=== PATIENT | male | born 1975 | race Caucasian/White ===

== ENCOUNTER 2022-05-31 08:20 | Emergency (ER) | payer SELFPAY ==
[2022-05-31 08:27] VITALS: BP 183/117; PULSE 107; RESP 19; TEMP 36.8; O2SAT 98; BMI 25.1
--- NOTE | 2022-05-31 08:37 | ECG_ITS ---
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 Measurements Intervals [place] Rate: 113 P: 0 [place]: 0 QRS: 59 QRSD: 80 T: 60 QT: 309 QTc: 424 Interpretive Statements SINUS TACHYCARDIA LEFT VENTRICULAR HYPERTROPHY AND ST-T CHANGE [VOLTAGE CRITERIA PLUS ST/T ABNORMALITY] No previous ECG available for comparison Electronically Signed On 05-31-2022 16:43:57 CDT by Luther Chou M.D. [id number]
[2022-05-31 08:58] LABS: Basophils # 0.1 10^3/uL (0.0-0.1); Basophils % 0.6 %; Eosinophils # 0.1 10^3/uL (0.0-0.8); Eosinophils % 0.7 %; Hematocrit 48.5 % (42.0-52.0); Hemoglobin 15.9 g/dL (11.7-16.6); Lymphocytes # 1.8 10^3/uL (0.8-4.8); Mean Corpuscular HGB Conc 32.8 g/dL (30.0-36.0); Mean Corpuscular Hemoglobin 28.5 pg (28.0-34.0); Mean Corpuscular Volume 86.9 fl (80-94); Mean Platelet Volume 10.2 fL (7.4-10.4); Monocytes # 0.9 10^3/uL (0.2-0.9); Monocytes % 5.8 %; Neutrophils # 12.15 10^3/uL (1.8-7.7); Neutrophils % 80.4 %; Nucleated Red Blood Cells % 0 %; Platelet Count 260 10^3/cmm (130-400); Red Blood Count 5.58 10^6/uL (4.1-5.3); Red Cell Distribution Width 12.7 % (12.1-15.1); White Blood Count 15.1 10^3/uL (4.0-10.0)
[2022-05-31] MEDS: ondansetron 2 mg/ML SDV 2 mL 4 MG IVP (09:03)
[2022-05-31] MEDS: sodium chloride 0.9% 1,000 ML 999 ML IV (09:03)
[2022-05-31 09:19] LABS: Alanine Aminotransferase 15 U/L (0-41); Albumin Level 4.4 g/dL (3.5-5.2); Alkaline Phosphatase 95 U/L (40-130); Anion Gap 12.7 (5-19); Aspartate Amino Transferase 16 U/L (0-40); Blood Urea Nitrogen 9 mg/dL (6-20); Calcium 9.4 mg/dL (8.5-10.5); Carbon Dioxide 29 mmol/L (22-29); Chloride 105 mmol/L (98-107); Globulin 3.2 g/dL (1.3-4.6); Glomerular Filtration Rate 91.7 mL/min (90-130); Glucose 123 mg/dL (65-115); Osmolality Calculated 296 mOsm/kg (285-295); Potassium 3.7 mmol/L (3.5-5.1); Sodium 143 mmol/L (136-145); Total Bilirubin 0.4 mg/dL (0.15-1.2); Total Protein 7.6 g/dL (6.6-8.7)
[2022-05-31 09:21] LABS: Alcohol Level < 10 mg/dL (0-10)
--- NOTE | 2022-05-31 09:36 | ED_ITS ---
HPI - Nausea/Vomiting/Diarrhea General: Chief complaint: Nausea/Vomiting/Diarrhea Stated complaint: possible OD of pain meds Time Seen by Provider: 05/31/22 08:23 Source: patient Mode of arrival: ambulatory History of Present Illness: 46-year-old male presents emergency room for planing of neck and back pain. Patient admits to chronic abuse of narcotics at home he takes illicit Keenan obtained medications he states he last took fentanyl about 4 to 5 hours ago when he is still having pain in his back and neck. He is unsure of the dose that he took he is awake alert and oriented shows no signs of sedation. He is tachycardic and hypertensive him. Clinically he appears to be under the influence of a stimulant. He is restless and moving constantly does not appear to affect his neck or back. After initially evaluating the patient he states now his legs hurt. Not had any swelling his legs no shortness of breath no history of blood clots. Patient had a previous neck and back injury nearly 10 years ago and has had chronic back pain since has not been seeing pain clinic or primary care provider. No recent illness shortness of breath abdominal pain dysuria urgency or frequency or diarrhea. He had 1 episode of vomiting this morning. MD elicited complaint: nausea Onset (ago): hour(s) Description of vomiting: watery Associated nausea: Yes Associated abdominal pain: No Location of pain: Other (Back neck lower extremities) Pain consistency: constant Severity: moderate Quality: aching Exacerbating factors: none Relieving factors: none Associated symtoms: Reports nausea; Denies altered mental status, anxiety, bloating, change in vision, chest pain, cough, diaphoresis, decreased urine output, dizziness, dysuria, epistaxis, fatigue, fecal incontinence, fevers/chills, headache(s), anorexia, malaise, myalgias, numbness, palpitations, rash, short of breath, syncope, tenesmus, tin nitus or weakness Review of Systems Const: Denies: fever(s), chills, fatigue, malaise or diaphoresis Eyes: Denies: change in vision ENMT: Denies: tinnitus or epistaxis Card: Denies: chest pain, palpitations or syncope Resp: Denies: dyspnea, productive cough or non-productive cough GI: Reports: nausea; Denies: bloating or fecal incontinence : Denies: dysuria Skin/Breast: Denies: rash or pruritus Neuro: Denies: headache(s) or dizziness Psych: Denies: anxiety PFSH ED PFSH: Medical History (Updated 05/31/22 @ 09:39 by Tra Sanchez DO) Chronic back pain Chronic neck pain Physical Exam Const: EXAM LIMITATIONS: no altered mental status GENERAL APPEARANCE: cooperative and comfortable ORIENTATION/CONSCIOUSNESS: Yes awake, Yes oriented to person, Yes oriented to place and Yes oriented to time HENMT: COMMON NORMALS: normocephalic, atraumatic and hearing grossly normal bilaterally HEAD & SCALP: normocephalic and atraumatic Resp: COMMON NORMALS: normal respiratory effort, No retractions, No use of accessory muscles and clear to auscultation bilaterally AUSCULTATION: clear to auscultation bilaterally Cardio: COMMON NORMALS: regular rate, regular rhythm and No murmurs present (Cardio) RATE: regular rate RHYTHM: regular rhythm GI: COMMON NORMALS: Soft to palpation and No hepatosplenomegaly present AUSCULTATION: Yes normoactive bowel sounds PALPATION: Yes Soft to palpation, No Tenderness to palpation present (GI), No Guarding due to palpation present (GI) and Yes No hepatosplenomegaly present Extremity: COMMON NORMALS: normal to inspection, capillary refill normal, no clubbing, cyanosis or edema, no calf tenderness and no pedal edema Neuro: SENSORIUM/ORIENTATION: Yes oriented to person, Yes oriented to place and Yes oriented to time Skin: COMMON NORMALS: no rashes or lesions noted GENERAL SKIN EXAM: no rashes or lesions noted Course Vital Signs: Vital signs: Vital Signs Temperature 98.3 F 05/31/22 08:27 Pulse Rate 107 H 05/31/22 08:27 Respiratory Rate 19 H 05/31/22 08:27 Blood Pressure 183/117 05/31/22 08:27 Pulse Oximetry 98 05/31/22 08:27 Oxygen Delivery Me thod 05/31/22 08:27 MDM - Nausea/Vomiting/Diarrhea Medical Decision Making Labs reviewed with the patient. He has not yet provided a urine specimen. Discharge him home on Lyrica and diclofenac for his neck and back pain which is chronic. Clonidine 0.1 twice daily for 3 days 0.1 daily for 3 days ondansetron as well that he can use for symptoms he encounters after stopping the narcotics. Finally also add amlodipine 2.5 p.o. daily. He should establish with a primary care doctor for referral to pain clinic as well as monitoring of his blood pressure should have his blood pressure rechecked within the week. Also give patient referral to local services for substance abuse. Medical Records I reviewed the patient's medical records. Lab Data I reviewed the patient's lab results. 05/31/22 08:32 05/31/22 08:32 Laboratory Results WBC 15.1 10^3/uL (4.0-10.0) H 05/31/22 08:32 RBC 5.58 10^6/uL (4.1-5.3) H 05/31/22 08:32 Hgb 15.9 g/dL (11.7-16.6) 05/31/22 08:32 Hct 48.5 % (42.0-52.0) 05/31/22 08:32 MCV 86.9 fl (80-94) 05/31/22 08:32 MCH 28.5 pg (28.0-34.0) 05/31/22 08:32 MCHC 32.8 g/dL (30.0-36.0) 05/31/22 08:32 RDW 12.7 % (12.1-15.1) 05/31/22 08:32 Plt Count 260 10^3/cmm (130-400) 05/31/22 08:32 MPV 10.2 fL (7.4-10.4) 05/31/22 08:32 Neut % (Auto) 80.4 % 05/31/22 08:32 Lymph % (Auto) 12.0 % 05/31/22 08:32 [place] % (Auto) 5.8 % 05/31/22 08:32 Eos % (Auto) 0.7 % 05/31/22 08:32 Baso % (Auto) 0.6 % 05/31/22 08:32 Neut # (Auto) 12.15 10^3/uL (1.8-7.7) H 05/31/22 08:32 Lymph # (Auto) 1.8 10^3/uL (0.8-4.8) 05/31/22 08:32 [place] # (Auto) 0.9 10^3/uL (0.2-0.9) 05/31/22 08:32 Eos # (Auto) 0.1 10^3/uL (0.0-0.8) 05/31/22 08:32 Baso # (Auto) 0.1 10^3/uL (0.0-0.1) 05/31/22 08:32 Nucleated RBC % (auto) 0 % 05/31/22 08:32 Nucleated RBCs # 0.0 /100WBC 05/31/22 08:32 Sodium 143 mmol/L (136-145) 05/31/22 08:32 Potassium 3.7 mmol/L (3.5-5.1) 05/31/22 08:32 Chloride 105 mmol/L (98-107) 05/31/22 08:32 Carbon Dioxide 29 mmol/L (22-29) 05/31/22 08:32 Anion Gap 12.7 (5-19) 05/31/22 08:32 BUN 9 mg/dL (6-20) 05/31/22 08:32 Creatinine 0.9 mg/dL (0.7-1.2) 05/31/22 08:32 GFR Calculation 91.7 mL/min (90-130) 05/31/22 08:32 Glucose 123 mg/dL (65-115) H 05/31/22 08:32 Calculated Osmolality 296 mOsm/kg (285-295) H 05/31/22 08:32 Calcium 9.4 mg/dL (8.5-10.5) 05/31/22 08:32 Total Bilirubin 0.4 mg/dL (0.15-1.2) 05/31/22 08:32 AST 16 U/L (0-40) 05/31/22 08:32 ALT 15 U/L (0-41) 05/31/22 08:32 Alkaline Phosphatase 95 U/L (40-130) 05/31/22 08:32 Total Protein 7.6 g/dL (6.6-8.7) 05/31/22 08:32 Albumin 4.4 g/dL (3.5-5.2) 05/31/22 08:32 Globulin 3.2 g/dL (1.3-4.6) 05/31/22 08:32 Ethyl Alcohol < 10 mg/dL (0-10) 03/22/23 08:32 Discharge Plan Discharge Patient Disposition: Home Clinical Impression: Chronic back pain, Chronic neck pain, Narcotic abuse, Hypertension Condition: Stable Prescriptions: New Lyrica 75 mg capsule 75 mg PO BID Qty: 60 0RF diclofenac sodium 75 mg tablet,delayed release (DR/EC) 75 mg PO Q12H PRN (Reason: pain) Qty: 20 0RF clonidine HCl 0.1 mg tablet 0.1 mg PO BID Qty: 9 0RF Rx Instructions: 1 p.o. twice daily x3 days then 1 p.o. daily x3 days ondansetron HCl 4 mg tablet 4 mg PO Q6H PRN (Reason: nausea and vomiting) Qty: 20 0RF amlodipine 2.5 mg tablet 2.5 mg PO DAILY Qty: 30 0RF Discharge Orders: Discharge ED (Routine); Ordered 05/31/22 Ordered By: Tra Sanchez Discharge Diet: Advance as tolerated Discharge Activity: Increase activity as tolerated Patient Instructions: Opioid Safety, Pain Management Activity Restrictions/Additional Instructions: Recommend you establish with a primary care physician who can refer you to the pain management clinic. You are given a prescription for Lyrica 1 p.o. twice daily to take as scheduled and to use diclofenac 1 every 12 hours as needed. You are also given ondansetron for nausea and vomiting and clonidine which will help with symptoms from not taking narcotics. You are also given amlodipine 1 tablet daily for your blood pressure. You should recheck with your primary care doctor to reevaluate blood pressure within the next week. Case management will help you establish with a primary care physician and will give you information on drug rehabilitation debilitation programs locally. Coding Level of Care Code ED Director Of Programming for [place]
[2022-05-31] MEDS: ketorolac 30 mg/mL INJ IVP (09:56)
[2022-05-31 10:05] VITALS: PULSE 82; RESP 20; O2SAT 98
--- NOTE | 2022-06-02 14:10 | DCPLANNER ---
Addendum entered by Gabriella Garcia 06/07/22 12:08: vehicle leasing and rental manager called patient due to no primary care physician - no answer at this time Original Note: vehicle leasing and rental manager called patient due to no primary care physician - no answer at this time
== END 2022-05-31 10:06 | disposition home or self-care (01) ==
PROVIDERS: Emergency Provider Family Medicine
DX: G89.29 Other chronic pain (principal); M54.9 Dorsalgia, unspecified; M54.2 Cervicalgia; I10 Essential (primary) hypertension; F11.10 Opioid abuse, uncomplicated
CPT/HCPCS: 80053; 80307; 85025; 93005; 96361; 96374; 96375; 99284; J1885; J2405; J7030

== ENCOUNTER 2024-10-28 15:05 | Emergency (ER) | payer OTHER, SELFPAY ==
[2024-10-28 15:15] VITALS: BP 161/69; PULSE 85; TEMP 36.7; O2SAT 97; BMI 23.9
--- OUTSIDE RECORDS SUMMARY | 2024-10-28 15:25 | XMS_ITS | Clinical Summary ---
Author Organization [facility] Address [address] Attn: Epic Prelude ADT LIZZETTE RODRIGUEZ [address] Care Team Providers Care Work From Home Name Role Phone Unavailable Primary Care Provider Unavailabl e Allergies No known active allergies Medications gabapentin (NEURONTIN) 100 mg capsule Take 1 Cap (100 mg) by mouth see administration instructions Start with one at hs, then two then three at hs.. 90 Capsule 5 5 Active cyclobenzaprin e (FLEXERIL) 5 mg Tablet Take 1 Tab (5 mg) by mouth 3 times daily as needed for Spasm. 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 SPECIALIST Gender Identity Not on file Sexual Orientation Not on file Last Filed Vital Signs Vital Sign Reading Time Taken Comments Blood Pressure 134/94 06/08/2015 8:47 PM CDT Pulse 72 03/30/2014 11:08 AM ACUTE SPECIALIST Temperature 36.1 C (97 F) 06/08/2015 8:47 PM CDT Respiratory Rate 19 06/08/2015 8:47 PM CDT Oxygen Saturation - - Inhaled Oxygen Concentration - - Weight 86.2 kg (190 lb) 06/08/2015 8:47 PM CDT Height 177.8 cm (5' 10 ) 06/08/2015 8:47 PM CDT Body Mass Index 27.26 06/08/2015 8:47 PM CDT Plan of Treatment Health Maintenance Due Date Last Done Comments DTAP/TDAP/TD VACCINES (1 - Tdap) 1996 HEPATITIS B VACCINES (1 of 3 - 19+ 3-dose series) 05/11 COLORECTAL SCREENING 2022 Colorectal Cancer Screening 2022 FIT-DNA Q 3 years 2022 FIT/FOBT Q 1 year 2022 Flex Sig/CT Colonography Q 5 years 2022 INFLUENZA VACCINE (#1) 2024
--- OUTSIDE RECORDS SUMMARY | 2024-10-28 15:26 | XMS_ITS | Clinical Summary ---
Author Organization [facility] Address [address] [place] [address] Care Team Providers Care Supervisor Landscape Name Role Phone Unavailable Primary Care Provider Unavailabl e Allergies No known active allergies Medications gabapentin (NEURONTIN) 100 mg capsule Take 1 Cap (100 mg) by mouth see administration instructions Start with one at hs, then two then three at hs.. 90 Cap 5 5 Active cyclobenzaprin e (FLEXERIL) 5 mg Tablet Take 1 Tab (5 mg) by mouth 3 times daily as needed for Spasm. 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
--- OUTSIDE RECORDS SUMMARY | 2024-10-28 15:26 | XMS_ITS | Encounter Summary ---
Author Organization [facility] Address [address] 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
--- OUTSIDE RECORDS SUMMARY | 2024-10-28 15:26 | XMS_ITS | Encounter Summary ---
Author Organization [facility] Address [address] 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
--- OUTSIDE RECORDS SUMMARY | 2024-10-28 15:26 | XMS_ITS | Encounter Summary ---
Author Organization [facility] Address [address] [place] [address] Care Team Providers Care Political Reporter Name Role Phone Unavailable Primary Care Provider Unavailabl e Encounter Details Date Type Department Care Team (Latest Contact Info) Description 05/21/2004 Outpatient Historical [facility] [address] [place] [address] AMBULANCE, 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
--- OUTSIDE RECORDS SUMMARY | 2024-10-28 15:26 | XMS_ITS | Encounter Summary ---
Author Organization [facility] Address [address] 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
[2024-10-28 15:32] LABS: Add Urine Microscopic? NO
[2024-10-28 15:35] LABS: Glucose Urine UA Negative (Normal); Nitrate Urine Negative (Negative); Specific Gravity, Urine 1.012 (1.005-1.030)
--- NOTE | 2024-10-28 15:35 | CTR_ITS ---
PROCEDURE INFORMATION: Exam: CT Abdomen And Pelvis Without Contrast Exam date and time: 10/28/2024 3:49 PM Age: 49 years old Clinical indication: Pain; Other: Left flank; Additional info: L flank pain, HX of stones TECHNIQUE: Imaging protocol: Computed tomography of the abdomen and pelvis without contrast. Radiation optimization: All CT scans at this facility use at least one of these dose optimization techniques: automated exposure control; mA and/or kV adjustment per patient size (includes targeted exams where dose is matched to clinical indication); or iterative reconstruction. COMPARISON: No relevant prior studies available. RADIATION DOSE METRICS: Total DLP (mGy-cm): 412.61 FINDINGS: Lungs: A 3 mm calcification in the posterior right lower lobe. Liver: The liver is normal. No mass. Gallbladder and biliary ducts: The gallbladder is normal. There is no evidence of biliary ductal dilation. Pancreas: The pancreas is normal. No mass. Spleen: The spleen is normal. Adrenal glands: The adrenal glands are normal. Kidneys and ureters: No renal or ureteral calculi. No hydronephrosis. Renal mass is not identified. Stomach and bowel: No evidence of bowel obstruction. No pericolonic inflammatory stranding. Appendix: Normal appendix. Intraperitoneal space: No significant peritoneal free fluid. No free peritoneal air. Vasculature: Aortic caliber is normal. Lymph nodes: Unremarkable. No enlarged lymph nodes. Urinary bladder: No focal wall thickening of the urinary bladder. Reproductive: Visualized portions of the male reproductive tract are unremarkable, though routine CT is limited in this regard. Bones/joints: No acute osseous abnormality. Soft tissues: Unremarkable. CT/CT kidney stone [id number] IMPRESSION: No acute findings.
--- NOTE | 2024-10-28 15:43 | ED_ITS ---
Documented by User: PANTERA Quarles 10/28/24 16:08 HPI - Male Genitourinary 2 General: Chief complaint: Urogenital-Male Stated complaint: Lower back L side pain Time Seen by Provider: 10/28/24 15:14 Source: patient Mode of arrival: ambulatory Limitations: no limitations History of Present Illness: Patient is a 49-year-old male who presents to ED today with complaint of left- sided back pain. He states pain began this morning after awakening. He states he does have a history of a kidney stone and states his symptoms today feel identical. He states earlier this morning he was having difficulty and painful urination stating he had to strain to get a few drops out . He states he later drank several glasses of water and now states he is urinating without difficulty. He has not noticed any hematuria. States he is not overly feeling nauseous and has not had any episodes of emesis. He is not having any abdominal pain. Reports no history of spraining/straining his back. Duration: constant Location: left flank Radiation: left flank Severity: moderate Quality: sharp Relieving factors: none Exacerbating factors: none Associated symptoms: Deny dysuria, hematuria, nausea or vomiting Related Data Previous Rx's ?Medication ?Instructions ?Recorded amlodipine 2.5 mg tablet 2.5 mg PO DAILY #30 tabs clonidine HCl 0.1 mg tablet 0.1 mg PO BID #9 tabs 05/11 05/04 diclofenac sodium 75 mg 75 mg PO Q12H PRN pain #20 t abs 05/31/22 tablet,delayed release ondansetron HCl 4 mg tablet 4 mg PO Q6H PRN nausea and 05/31/22 vomiting #20 tabs pregabalin 75 mg capsule (Lyrica) 75 mg PO BID #60 cap s 05/31/22 Allergies Allergy/AdvReac Type Severity Reaction Status Date / Time No Known Allergies Allergy Verified 10/28/24 15:21 Review of Systems 2 Const: Denies: fever(s), chills, body aches, fatigue or malaise Card: Denies: chest pain Resp: Denies: dyspnea GI: Denies: abdominal pain, nausea, vomiting or diarrhea : Reports: flank pain and difficulty urinating; Denies: dysuria, urinary frequency, urinary urgency, urinary hesitancy or hematuria Musc: Reports: back pain (L); Denies: neck pain, extremity pain, extremity swelling, joint pain, joint swelling or joint redness Skin/Breast: Denies: rash Neuro: Denies: headache(s), numbness in extremities, weakness in extremities or sensory changes PFSH ED 2 PFSH: Medical History Chronic neck pain Chronic back pain Physical Exam 2 Const: COMMON NORMALS: no acute distress, average body habitus, patient oriented x3, no limitations, healthy appearing, alert and well nourished G ENERAL APPEARANCE: cooperative ORIENTATION/CONSCIOUSNESS: Yes awake, Yes oriented to person, Yes oriented to place and Yes oriented to time Resp: COMMON NORMALS: normal respiratory effort and clear to auscultation bilaterally AUSCULTATION: clear to auscultation bilaterally Cardio: COMMON NORMALS: regular rate and regular rhythm RATE: regular rate RHYTHM: regular rhythm GI: COMMON NORMALS: Normal to inspection, nondistended, normoactive bowel sounds present, Soft to palpation, non-tender, No hepatosplenomegaly present and no masses INSPECTION: Yes normal to inspection PALPATION: Yes Soft to palpation and Yes No hepatosplenomegaly present : BLADDER/KIDNEY EXAM: Yes CVA tenderness (pain under L CVA) on the left Back/Pelvis: COMMON NORMALS: thoracic and lumbar spine normal to inspection, no thoracic nor lumbar tenderness, thoraco-lumbar ROM normal and straight leg raise negative bilaterally GENERAL BACK: Yes CVA tenderness (pain under L CVA) Extremity: GENERAL: Yes normal exam except as noted Neuro: COMMON NORMALS: patient oriented x3, moves all extremities, no focal motor deficits and no sensory deficits noted SENSORIUM/ORIENTATION: Yes alert, Yes oriented to person, Yes oriented to place and Yes oriented to time Skin: COMMON NORMALS: no rashes or lesions noted GENERAL SKIN EXAM: no rashes or lesions noted Course 2 Vital Signs: Vital signs: Vital Signs Temperature 98.1 F 10/28/24 15:15 Pulse Rate 85 10/28/24 15:15 Blood Pressure 161/69 10/28/24 15:15 Pulse Oximetry 97 10/28/24 15:15 Oxygen Delivery Me thod Room Air 10/28/24 15:15 MDM - Male Lab Data 10/28/24 15:43 10/28/24 15:43 Radiology Impressions Abdomen/Pelvis CT 10/28/24 15:35 IMPRESSION: No acute findings. Laboratory Results WBC 12.54 10^3/uL (3.29-11.43) H 10/28/24 15:43 RBC 5.26 10^6/uL (3.85-5.65) 10/28/24 15:43 Hgb 15.50 g/dL (11.27-16.99) 10/28/24 15:43 Hct 44.2 % (37-53) 10/28/24 15:43 MCV 84.0 fl (82-101) 10/28/24 15:43 MCH 29.5 pg (27-33) 10/28/24 15:43 MCHC 35.1 g/dL (30-55) 10/28/24 15:43 RDW 12.4 % (12.1-15.1) 10/28/24 15:43 Plt Count 284 10^3/cmm (157-399) 10/28/24 15:43 MPV 9.3 fL (7.4-10.4) 10/28/24 15:43 Neut % (Auto) 66.0 % 10/28/24 15:43 Lymph % (Auto) 22.8 % 10/28/24 15:43 [place] % (Auto) 8.8 % 10/28/24 15:43 Eos % (Auto) 1.4 % 10/28/24 15:43 Baso % (Auto) 0.4 % 10/28/24 15:43 Neut # (Auto) 8.29 10^3/uL (1.8-7.7) H 10/28/24 15:43 Lymph # (Auto) 2.9 10^3/uL (0.8-4.8) 10/28/24 15:43 [place] # (Auto) 1.1 10^3/uL (0.2-0.9) H 10/28/24 15:43 Eos # (Auto) 0.2 10^3/uL (0.0-0.8) 10/28/24 15:43 Baso # (Auto) 0.1 10^3/uL (0.0-0.1) 10/28/24 15:43 Nucleated RBC % (auto) 0 % 10/28/24 15:43 Nucleated RBCs # 0.0 /100WBC 10/28/24 15:43 Sodium 130 mmol/L (136-145) L 10/28/24 15:43 Potassium 3.1 mmol/L (3.5-5.1) L 10/28/24 15:43 Chloride 90 mmol/L (98-107) L 10/28/24 15:43 Carbon Dioxide 26 mmol/L (22-29) 10/28/24 15:43 Anion Gap 17.1 (5-19) 10/28/24 15:43 BUN 14 mg/dL (6-20) 10/28/24 15:43 Creatinine 0.8 mg/dL (0.7-1.2) 10/28/24 15:43 GFR Calculation 103.6 mL/min (90-130) 10/28/24 15:43 Glucose 114 mg/dL (65-115) 10/28/24 15:43 Calculated Osmolality 271 mOsm/kg (285-295) L 10/28/24 15:43 Calcium 9.8 mg/dL (8.5-10.5) 10/28/24 15:43 Total Bilirubin 1.6 mg/dL (0.15-1.2) H 10/28/24 15:43 AST 27 U/L (0-40) 10/28/24 15:43 ALT 21 U/L (0-41) 10/28/24 15:43 Alkaline Phosphatase 106 U/L (40-130) 10/28/24 15:43 Total Protein 8.2 g/dL (6.6-8.7) 10/28/24 15:43 Albumin 4.9 g/dL (3.5-5.2) 10/28/24 15:43 Globulin 3.3 g/dL (1.3-4.6) 10/28/24 15:43 Urine Color Yellow (Yellow) 10/28/24 15:24 Urine Appearance Clear (CLEAR) 10/28/24 15:24 Urine pH 5.5 (5-7) 10/28/24 15:24 Ur Specific [place] 1.012 (1.005-1.030) 10/28/24 15:24 Urine Protein Negative (Negative) 10/28/24 15:24 Urine Glucose (UA) Negative (Normal) 10/28/24 15:24 Urine Ketones 1+ (Negative) H 10/28/24 15:24 Urine Blood Negative (Negative) 10/28/24 15:24 Urine Nitrate Negative (Negative) 10/28/24 15:24 Urine Bilirubin Negative (Negative) 10/28/24 15:24 Urine Urobilinogen 1.0 mg/dL (Negative) 10/28/24 15:24 Ur Leukocyte Esterase Negative (Negative) 10/28/24 15:24 Amorphous Sediment Not Reportable 10/28/24 15:24 Discharge Plan Discharge Patient Disposition: Home Clinical Impression: Acute left-sided back pain Condition: Stable Prescriptions: No Action Lyrica 75 mg capsule 75 mg PO BID Qty: 60 0RF diclofenac sodium 75 mg tablet,delayed release (DR/EC) 75 mg PO Q12H PRN (Reason: pain) Qty: 20 0RF clonidine HCl 0.1 mg tablet 0.1 mg PO BID Qty: 9 0RF Rx Instructions: 1 p.o. twice daily x3 days then 1 p.o. daily x3 days ondansetron HCl 4 mg tablet 4 mg PO Q6H PRN (Reason: nausea and vomiting) Qty: 20 0RF amlodipine 2.5 mg tablet 2.5 mg PO DAILY Qty: 30 0RF Discharge Orders: Discharge ED (Routine); Ordered 10/28/24 Ordered By: Mario Gutierrez Discharge Diet: Usual diet Discharge Activity: Resume usual activity Patient Instructions: Back Pain (ED) Activity Restrictions/Additional Instructions: As we discussed, we did not find an etiology for your left back pain discomfort. We discussed possible causes such as recently passed ureter stone, musculoskeletal pain Make sure you follow-up with your primary care physician regarding this issue and additional causes. Print Language: Macedonian Coding Level of Care Code ED Coating Technician for [facility] F[facility] Documented by User: PANTERA Gonzalez 10/28/24 17:54 HPI - Male Genitourinary 2 General: Chief complaint: Urogenital-Male Stated complaint: Lower back L side pain Time Seen by Provider: 10/28/24 15:14 Related Data Previous Rx's ?Medication ?Instructions ?Recorded amlodipine 2.5 mg tablet 2.5 mg PO DAILY #30 tabs clonidine HCl 0.1 mg tablet 0.1 mg PO BID #9 tabs 05/11 05/04 diclofenac sodium 75 mg 75 mg PO Q12H PRN pain #20 t abs 05/31/22 tablet,delayed release ondansetron HCl 4 mg tablet 4 mg PO Q6H PRN nausea and 05/31/22 vomiting #20 tabs pregabalin 75 mg capsule (Lyrica) 75 mg PO BID #60 cap s 05/31/22 Allergies Allergy/AdvReac Type Severity Reaction Status Date / Time No Known Allergies Allergy Verified 10/28/24 15:21 PFSH ED 2 PFSH: Medical History Chronic neck pain Chronic back pain Course 2 Vital Signs: Vital signs: Vital Signs Temperature 98.1 F 10/28/24 15:15 Pulse Rate 85 10/28/24 15:15 Blood Pressure 161/69 10/28/24 15:15 Pulse Oximetry 97 10/28/24 15:15 Oxygen Delivery Me thod Room Air 10/28/24 15:15 MDM - Male Medical Decision Making Patient was seen for left flank pain, afraid for renal colic. CT was negative, urinalysis was benign. He will be discharged home with instructions for follow- up with his primary. Discussed with patient no additional findings were noted and additional concerns would be recently passed stone, musculoskeletal pain. Patient states understanding. Lab Data 10/28/24 15:43 10/28/24 15:43 Radiology Impressions Abdomen/Pelvis CT 10/28/24 15:35 IMPRESSION: No acute findings. Laboratory Results WBC 12.54 10^3/uL (3.29-11.43) H 10/28/24 15:43 RBC 5.26 10^6/uL (3.85-5.65) 10/28/24 15:43 Hgb 15.50 g/dL (11.27-16.99) 10/28/24 15:43 Hct 44.2 % (37-53) 10/28/24 15:43 MCV 84.0 fl (82-101) 10/28/24 15:43 MCH 29.5 pg (27-33) 10/28/24 15:43 MCHC 35.1 g/dL (30-55) 10/28/24 15:43 RDW 12.4 % (12.1-15.1) 10/28/24 15:43 Plt Count 284 10^3/cmm (157-399) 10/28/24 15:43 MPV 9.3 fL (7.4-10.4) 10/28/24 15:43 Neut % (Auto) 66.0 % 10/28/24 15:43 Lymph % (Auto) 22.8 % 10/28/24 15:43 [place] % (Auto) 8.8 % 10/28/24 15:43 Eos % (Auto) 1.4 % 10/28/24 15:43 Baso % (Auto) 0.4 % 10/28/24 15:43 Neut # (Auto) 8.29 10^3/uL (1.8-7.7) H 10/28/24 15:43 Lymph # (Auto) 2.9 10^3/uL (0.8-4.8) 10/28/24 15:43 [place] # (Auto) 1.1 10^3/uL (0.2-0.9) H 10/28/24 15:43 Eos # (Auto) 0.2 10^3/uL (0.0-0.8) 10/28/24 15:43 Baso # (Auto) 0.1 10^3/uL (0.0-0.1) 10/28/24 15:43 Nucleated RBC % (auto) 0 % 10/28/24 15:43 Nucleated RBCs # 0.0 /100WBC 10/28/24 15:43 Sodium 130 mmol/L (136-145) L 10/28/24 15:43 Potassium 3.1 mmol/L (3.5-5.1) L 10/28/24 15:43 Chloride 90 mmol/L (98-107) L 10/28/24 15:43 Carbon Dioxide 26 mmol/L (22-29) 10/28/24 15:43 Anion Gap 17.1 (5-19) 10/28/24 15:43 BUN 14 mg/dL (6-20) 10/28/24 15:43 Creatinine 0.8 mg/dL (0.7-1.2) 10/28/24 15:43 GFR Calculation 103.6 mL/min (90-130) 10/28/24 15:43 Glucose 114 mg/dL (65-115) 10/28/24 15:43 Calculated Osmolality 271 mOsm/kg (285-295) L 10/28/24 15:43 Calcium 9.8 mg/dL (8.5-10.5) 10/28/24 15:43 Total Bilirubin 1.6 mg/dL (0.15-1.2) H 10/28/24 15:43 AST 27 U/L (0-40) 10/28/24 15:43 ALT 21 U/L (0-41) 10/28/24 15:43 Alkaline Phosphatase 106 U/L (40-130) 10/28/24 15:43 Total Protein 8.2 g/dL (6.6-8.7) 10/28/24 15:43 Albumin 4.9 g/dL (3.5-5.2) 10/28/24 15:43 Globulin 3.3 g/dL (1.3-4.6) 10/28/24 15:43 Urine Color Yellow (Yellow) 10/28/24 15:24 Urine Appearance Clear (CLEAR) 10/28/24 15:24 Urine pH 5.5 (5-7) 10/28/24 15:24 Ur Specific [place] 1.012 (1.005-1.030) 10/28/24 15:24 Urine Protein Negative (Negative) 10/28/24 15:24 Urine Glucose (UA) Negative (Normal) 10/28/24 15:24 Urine Ketones 1+ (Negative) H 10/28/24 15:24 Urine Blood Negative (Negative) 10/28/24 15:24 Urine Nitrate Negative (Negative) 10/28/24 15:24 Urine Bilirubin Negative (Negative) 10/28/24 15:24 Urine Urobilinogen 1.0 mg/dL (Negative) 10/28/24 15:24 Ur Leukocyte Esterase Negative (Negative) 10/28/24 15:24 Amorphous Sediment Not Reportable 10/28/24 15:24 All radiology interpretation(s) finalized by discharge Discharge Plan Discharge Patient Disposition: Home Clinical Impression: Acute left-sided back pain Condition: Stable Prescriptions: No Action Lyrica 75 mg capsule 75 mg PO BID Qty: 60 0RF diclofenac sodium 75 mg tablet,delayed release (DR/EC) 75 mg PO Q12H PRN (Reason: pain) Qty: 20 0RF clonidine HCl 0.1 mg tablet 0.1 mg PO BID Qty: 9 0RF Rx Instructions: 1 p.o. twice daily x3 days then 1 p.o. daily x3 days ondansetron HCl 4 mg tablet 4 mg PO Q6H PRN (Reason: nausea and vomiting) Qty: 20 0RF amlodipine 2.5 mg tablet 2.5 mg PO DAILY Qty: 30 0RF Discharge Orders: Discharge ED (Routine); Ordered 10/28/24 Ordered By: Mario Gutierrez Discharge Diet: Usual diet Discharge Activity: Resume usual activity Patient Instructions: Back Pain (ED) Activity Restrictions/Additional Instructions: As we discussed, we did not find an etiology for your left back pain discomfort. We discussed possible causes such as recently passed ureter stone, musculoskeletal pain Make sure you follow-up with your primary care physician regarding this issue and additional causes. Print Language: Macedonian Coding Level of Care Code ED Coating Technician for [place]
[2024-10-28] MEDS: ondansetron 2 mg/ML SDV 2 mL 4 MG IVP (15:49)
[2024-10-28 15:52] LABS: Hematocrit 44.2 % (37-53); Hemoglobin 15.50 g/dL (11.27-16.99); Mean Corpuscular HGB Conc 35.1 g/dL (30-55); Mean Corpuscular Hemoglobin 29.5 pg (27-33); Mean Corpuscular Volume 84.0 fl (82-101); Nucleated Red Blood Cells % 0 %; Platelet Count 284 10^3/cmm (157-399); Red Blood Count 5.26 10^6/uL (3.85-5.65); White Blood Count 12.54 10^3/uL (3.29-11.43)
[2024-10-28 16:00] LABS: Charge for UA Resulting for Rev
[2024-10-28 16:11] LABS: Alanine Aminotransferase 21 U/L (0-41); Albumin Level 4.9 g/dL (3.5-5.2); Alkaline Phosphatase 106 U/L (40-130); Anion Gap 17.1 (5-19); Aspartate Amino Transferase 27 U/L (0-40); Blood Urea Nitrogen 14 mg/dL (6-20); Calcium 9.8 mg/dL (8.5-10.5); Carbon Dioxide 26 mmol/L (22-29); Chloride 90 mmol/L (98-107); Creatinine Clr Calc Pharmacy 119.6406; Globulin 3.3 g/dL (1.3-4.6); Glucose 114 mg/dL (65-115); Osmolality Calculated 271 mOsm/kg (285-295); Potassium 3.1 mmol/L (3.5-5.1); Sodium 130 mmol/L (136-145); Total Protein 8.2 g/dL (6.6-8.7)
== END 2024-10-28 17:56 | disposition home or self-care (01) ==
PROVIDERS: Emergency Provider Physician Assistant
DX: M54.89 Other dorsalgia (principal)
CPT/HCPCS: 36415; 74176; 80053; 81003; 85025; 96374; 96375; 99285; J1885; J2405